=== PATIENT | female | born 1990 | race Caucasian/White ===

== ENCOUNTER 2018-02-25 03:43 | Emergency (ER) | payer SELFPAY ==
[2018-02-25] MEDS ORDERED: NACL 0.9% 1000 ML 1,000 ML IV ONE (05:26)
[2018-02-25] MEDS ORDERED: ZOFRAN ONE (05:32)
[2018-02-25] MEDS ORDERED: TORADOL ONE (05:33)
[2018-02-25] MEDS ORDERED: ZOFRAN IM ONE (05:46)
[2018-02-25] MEDS ORDERED: TORADOL IM ONE (05:46)
[2018-02-25 05:47] LABS: Basophils % (Auto) 0.4 % (0.0-1.8); Eosinophils % (Auto) 0.3 % (0.0-4.3); Hematocrit 40.5 % (30.3-42.9); Hemoglobin 13.4 gm/dl (10.1-14.3); Lymphocytes # (Auto) 1.6 K/mm3 (1.2-5.4); Mean Corpuscular HGB Conc 33 % (30-34); Mean Corpuscular Hemoglobin 27 pg (28-32); Mean Corpuscular Volume 83 fl (79-97); Monocytes # (Auto) 0.6 K/mm3 (0.0-0.8); Platelet Count 481 K/mm3 (140-440); Red Blood Count 4.91 M/mm3 (3.65-5.03); Red Cell Distribution Width 13.6 % (13.2-15.2)
[2018-02-25 05:51] LABS: Bilirubin,Urine NEG (Negative); Blood,Urine NEG (Negative); Color,Urine Yellow (Yellow); Mucus,Urine FEW /HPF; Protein,Urine <15 mg/dL mg/dL (Negative); Urobilinogen,Urine < 2.0 mg/dL (<2.0)
[2018-02-25 06:02] LABS: Alanine Aminotransferase 14 units/L (7-56); Albumin 4.5 g/dL (3.9-5); BUN/Creatinine Ratio 11; Blood Urea Nitrogen 8 mg/dL (7-17); Calcium 9.3 mg/dL (8.4-10.2); Hemolysis Index 6; Lipase 31 units/L (13-60)
--- NOTE | 2018-02-25 07:43 | Emergency Department Report ---
ED Abdominal Pain HPI - General Chief Complaint: Abdominal Pain Stated Complaint: ABDOMINAL PAIN Time Seen by Provider: 02/25/18 07:35 Source: patient Mode of arrival: Ambulatory Limitations: No Limitations - History of Present Illness Initial Comments: 27 year old female with a past medical history of morbid obesity but denies previous surgical history presents to to the hospital with complaints of abdominal pain since 6 PM last night. Pain is epigastric area initially rated 10/10 in intensity, sharp, intermittent and worse with palpation. No alleviating factors reported. She complains of approximately 6 episodes of yellow vomitus. She denies coffee ground emesis, melena, hematochezia, diarrhea , hematemesis, or fever. Toradol and Zofran prior to my evaluation improvement in pain. She denies dysuria. Severity scale (0 -10): 10 - Related Data Previous Rx's Medication Instructions Recorded Last Taken Type Famotidine [Pepcid] 20 mg PO BID #20 tablet 02/25/18 Unknown Rx HYDROcodone/APAP 5-325 [[place] 1 each PO Q6HR PRN #20 tablet 02/25/18 Unknown Rx 5/325] Ibuprofen [Motrin] 800 mg PO Q8HR PRN #30 tablet 02/25/18 Unknown Rx Ondansetron [Zofran Odt] 4 mg PO Q8HR PRN #20 tab.rapdis 02/25/18 Unknown Rx Allergies Allergy/AdvReac Type Severity Reaction Status Date / Time No Known Allergies Allergy Verified 02/25/18 05:43 ED Review of Systems ROS: Stated complaint: ABDOMINAL PAIN Other details as noted in HPI Comment: All other systems reviewed and negative ED Past Medical Hx - Past Medical History Additional medical history: Morbid Obesity - Surgical History Past Surgical History?: No - Social History Smoking Status: Never Smoker Substance Use Type: None - Medications Home Medications: Home Medications Medication Instructions Recorded Confirmed Last Taken Type Famotidine [Pepcid] 20 mg PO BID #20 tablet 02/25/18 Unknown Rx HYDROcodone/APAP 5-325 [[place] 1 each PO Q6HR PRN #20 tablet 02/25/18 Unknown Rx 5/325] Ibuprofen [Motrin] 800 mg PO Q8HR PRN #30 tablet 02/25/18 Unknown Rx Ondansetron [Zofran Odt] 4 mg PO Q8HR PRN #20 tab.rapdis 02/25/18 Unknown Rx ED Physical Exam - General Limitations: No Limitations - Other Other exam information: General: No limitations, patient is alert in no acute distress, obese Head exam: Atraumatic, normocephalic Eyes exam: Normal appearance, nonicteric sclerae ENT: Moist mucous membrane, normal oropharynx Neck exam: Normal inspection, full range of motion, no meningismus nontender Respiratory exam: Clear to auscultation bilateral, no wheezes, rales, crackles Cardiovascular: Normal rate and rhythm, normal heart sounds Abdomen: Soft, nondistended, left upper quadrant tenderness without positive Garrison sign, with normal bowel sounds, no rebound, or guarding Extremity: Full range of motion normal inspection no deformity Back: Normal Inspection, full range of motion, no tenderness Neurologic: Alert, oriented x3, cranial nerves intact, no motor or sensory deficit Psychiatric: normal affect, normal mood Skin: Warm, dry, intact ED Course Vital Signs 02/25/18 02/25/18 02/25/18 05:25 07:43 07:44 Temperature 97.7 F Pulse Rate 73 Respiratory 16 Rate Blood Pressure 121/69 Blood Pressure 164/102 [Left] O2 Sat by Pulse 98 98 97 Oximetry 02/25/18 02/25/18 02/25/18 07:45 07:47 07:49 Temperature Pulse Rate Respiratory Rate Blood Pressure 115/62 115/62 115/62 Blood Pressure [Left] O2 Sat by Pulse 95 98 99 Oximetry 02/25/18 02/25/18 02/25/18 07:51 07:53 07:55 Temperature Pulse Rate Respiratory Rate Blood Pressure 115/62 115/62 115/62 Blood Pressure [Left] O2 Sat by Pulse 99 100 100 Oximetry 02/25/18 02/25/18 08:51 08:53 Temperature 98.3 F Pulse Rate 98 H Respiratory 16 Rate Blood Pressure 89/42 Blood Pressure [Left] O2 Sat by Pulse 98 Oximetry ED Medical Decision Making - Lab Data Result diagrams: 02/25/18 05:36 02/25/18 05:36 Lab Results 02/25/18 02/25/18 02/25/18 Range/Units 05:36 05:36 05:36 WBC 12.5 H (4.5-11.0) K/mm3 RBC 4.91 (3.65-5.03) M/mm3 Hgb 13.4 (10.1-14.3) gm/dl Hct 40.5 (30.3-42.9) % MCV 83 (79-97) fl MCH 27 L (28-32) pg MCHC 33 (30-34) % RDW 13.6 (13.2-15.2) % Plt Count 481 H (140-440) K/mm3 Lymph % (Auto) 13.0 L (13.4-35.0) % [place] % (Auto) 5.0 (0.0-7.3) % Eos % (Auto) 0.3 (0.0-4.3) % Baso % (Auto) 0.4 (0.0-1.8) % Lymph # 1.6 (1.2-5.4) K/mm3 [place] # 0.6 (0.0-0.8) K/mm3 Eos # 0.0 (0.0-0.4) K/mm3 Baso # 0.0 (0.0-0.1) K/mm3 Seg Neutrophils % 81.3 H (40.0-70.0) % Seg Neutrophils # 10.2 H (1.8-7.7) K/mm3 Sodium 140 (137-145) mmol/L Potassium 4.1 (3.6-5.0) mmol/L Chloride 103.5 (98-107) mmol/L Carbon Dioxide 26 (22-30) mmol/L Anion Gap 15 mmol/L BUN 8 (7-17) mg/dL Creatinine 0.7 (0.7-1.2) mg/dL Estimated GFR > 60 ml/min BUN/Creatinine Ratio 11 % Glucose 119 H (65-100) mg/dL Calcium 9.3 (8.4-10.2) mg/dL Total Bilirubin 0.40 (0.1-1.2) mg/dL AST 14 (5-40) units/L ALT 14 (7-56) units/L Alkaline Phosphatase 96 (35-129) units/L Total Protein 7.9 (6.3-8.2) g/dL Albumin 4.5 (3.9-5) g/dL Albumin/Globulin Ratio 1.3 % Lipase 31 (13-60) units/L HCG, Qual Negative (Negative) Urine Color (Yellow) Urine Turbidity (Clear) Urine pH (5.0-7.0) Ur Specific [place] (1.003-1.030) Urine Protein (Negative) mg/dL Urine Glucose (UA) (Negative) mg/dL Urine Ketones (Negative) mg/dL Urine Blood (Negative) Urine Nitrite (Negative) Urine Bilirubin (Negative) Urine Urobilinogen (<2.0) mg/dL Ur Leukocyte Esterase (Negative) Urine WBC (Auto) (0.0-6.0) /HPF Urine RBC (Auto) (0.0-6.0) /HPF U Epithel Cells (Auto) (0-13.0) /HPF Urine Mucus /HPF 02/25/18 Range/Units Unknown WBC (4.5-11.0) K/mm3 RBC (3.65-5.03) M/mm3 Hgb (10.1-14.3) gm/dl Hct (30.3-42.9) % MCV (79-97) fl MCH (28-32) pg MCHC (30-34) % RDW (13.2-15.2) % Plt Count (140-440) K/mm3 Lymph % (Auto) (13.4-35.0) % [place] % (Auto) (0.0-7.3) % Eos % (Auto) (0.0-4.3) % Baso % (Auto) (0.0-1.8) % Lymph # (1.2-5.4) K/mm3 [place] # (0.0-0.8) K/mm3 Eos # (0.0-0.4) K/mm3 Baso # (0.0-0.1) K/mm3 Seg Neutrophils % (40.0-70.0) % Seg Neutrophils # (1.8-7.7) K/mm3 Sodium (137-145) mmol/L Potassium (3.6-5.0) mmol/L Chloride (98-107) mmol/L Carbon Dioxide (22-30) mmol/L Anion Gap mmol/L BUN (7-17) mg/dL Creatinine (0.7-1.2) mg/dL Estimated GFR ml/min BUN/Creatinine Ratio % Glucose (65-100) mg/dL Calcium (8.4-10.2) mg/dL Total Bilirubin (0.1-1.2) mg/dL AST (5-40) units/L ALT (7-56) units/L Alkaline Phosphatase (35-129) units/L Total Protein (6.3-8.2) g/dL Albumin (3.9-5) g/dL Albumin/Globulin Ratio % Lipase (13-60) units/L HCG, Qual (Negative) Urine Color Yellow (Yellow) Urine Turbidity Slightly-cloudy (Clear) Urine pH 5.0 (5.0-7.0) Ur Specific [place] 1.017 (1.003-1.030) Urine Protein <15 mg/dl (Negative) mg/dL Urine Glucose (UA) Neg (Negative) mg/dL Urine Ketones Neg (Negative) mg/dL Urine Blood Neg (Negative) Urine Nitrite Neg (Negative) Urine Bilirubin Neg (Negative) Urine Urobilinogen < 2.0 (<2.0) mg/dL Ur Leukocyte Esterase Mod (Negative) Urine WBC (Auto) 14.0 H (0.0-6.0) /HPF Urine RBC (Auto) 3.0 (0.0-6.0) /HPF U Epithel Cells (Auto) 7.0 (0-13.0) /HPF Urine Mucus Few /HPF - Radiology Data Radiology results: report reviewed FINDINGS: LIVER: Normal. BILIARY SYSTEM: There are multiple small and large gallstones within the gallbladder. No evidence for gallbladder wall thickening, abnormal distention or surrounding fluid. The CBD measures 4 mm. PANCREAS: Normal. SPLEEN: Normal. KIDNEYS: Normal. AORTA/IVC: Normal. ASCITES: None. IMPRESSION: Cholelithiasis. - Medical Decision Making Patient has cholelithiasis without signs of cholecystitis on ultrasound. Normal white count, lack of fever, and normal LFTs and lipase. Patient is a candidate for symptomatic treatment and outpatient referral for definitive surgery. Initial HTN improved with pain control pt has mild elevated urine wbc without bact or nitrates. Will be covered with cipro x 7 days (to cover gb as well). Levaquin po given in ed - Differential Diagnosis biliary colic, PUD, gastritis, UTI Critical Care Time: No Critical care attestation.: If time is entered above; I have spent that time in minutes in the direct care of this critically ill patient, excluding procedure time. ED Disposition Clinical Impression: Biliary colic, Urine WBC increased Disposition: DC- TO HOME OR SELFCARE Is pt being admited?: No Does the pt Need Aspirin: No Condition: Stable Instructions: Biliary Colic (ED), Urinary Tract Infection in Women (ED) Additional Instructions: Take the medication as prescribed. Follow up with your doctor or clinic provided. Follow-up with a surgeon for further management of the gallbladder. Return if symptoms worsen as indicated by your discharge instructions Prescriptions: Famotidine [Pepcid] 20 mg PO BID #20 tablet HYDROcodone/APAP 5-325 [[place] 5/325] 1 each PO Q6HR PRN #20 tablet PRN Reason: Pain Ibuprofen [Motrin] 800 mg PO Q8HR PRN #30 tablet PRN Reason: Pain, Moderate (4-6) Ondansetron [Zofran Odt] 4 mg PO Q8HR PRN #20 tab.rapdis PRN Reason: Nausea And Vomiting Referrals: LIAN CASTANO DO [Staff Physician] - 3-5 Days (General surgery) PRIMARY CARE, [Primary Care Provider] - 3-5 Days [facility] [Provider Group] - 3-5 Days (Primary care clinic) Time of Disposition: 09:44 Print Language: KITTITIAN
--- NOTE | 2018-02-25 08:35 | Ultrasound Report ---
ULTRASOUND ABDOMEN COMPLETE: TECHNIQUE: Transabdominal ultrasound with color Doppler interrogation. HISTORY: Right upper quadrant pain, epigastric pain, nausea and vomiting. COMPARISON: none. FINDINGS: LIVER: Normal. BILIARY SYSTEM: There are multiple small and large gallstones within the gallbladder. No evidence for gallbladder wall thickening, abnormal distention or surrounding fluid. The CBD measures 4 mm. PANCREAS: Normal. SPLEEN: Normal. KIDNEYS: Normal. AORTA/IVC: Normal. ASCITES: None. IMPRESSION: Cholelithiasis.
[2018-02-25] MEDS ORDERED: ZOFRAN IV ONE (08:48)
[2018-02-25] MEDS ORDERED: MORPHINE IV ONE (08:48)
[2018-02-25] MEDS ORDERED: LEVAQUIN PO ONE (08:55)
[2018-02-25 09:55] VITALS: BP 94/26
== END 2018-02-25 09:55 | disposition home or self-care (01) ==
LOC: ED 03:43
DX: K80.50 Calculus of bile duct without cholangitis or cholecystitis without obstruction (principal); D72.829 Elevated white blood cell count, unspecified; E66.01 Morbid (severe) obesity due to excess calories
CPT/HCPCS: 36415; 76700; 80053; 81001; 83690; 84703; 85025; 96372; 96374; 96375; 99284; J1885; J2270; J2405